=== PATIENT | female | born 1955 | race Two or more races ===

== ENCOUNTER 2019-11-25 20:04 | Inpatient (IN) | payer MEDICARE, MEDICAID ==
[~2019-11-25] VITALS: Ht 165.1 cm; Wt 69.4 kg
[2019-11-25 21:17] LABS: BASOPHILS % 0.6 % (0.0-2.0); EOSINOPHILS % 2.2 % (0.0-5.0); HEMATOCRIT. 46.3 % (36.0-48.0); HEMOGLOBIN. 15.7 g/dL (12.0-16.0); LYMPHOCYTES % 29.1 % (20.0-50.0); MEAN CORPUSCULAR HEMOGLOBIN 29.9 pg (28.0-32.0); MEAN PLATELET VOLUME 11.2 fl (7.4-10.4); MONOCYTES % 10.3 % (2.0-8.0); NEUTROPHILS % 57.8 % (40.0-76.0); PLATELET 188 x1000/uL (130-400); RED BLOOD CELL COUNT 5.26 mill/uL (4.2-5.4); RED CELL DISTRIBUTION WIDTH 13.2 % (11.6-14.6)
[2019-11-25 21:24] LABS: CHLORIDE 108 mEq/L (98-107)
[2019-11-25 21:26] LABS: PROTHROMBIN TIME 10.3 sec (9.6-11.0)
[2019-11-25 21:28] LABS: ETHANOL BLOOD < 10 mg/dL
[2019-11-25 21:31] LABS: LDL CHOLESTEROL 148 mg/dL (5-100)
[2019-11-25] MEDS ORDERED: LABETALOL 5MG/ML SYR 20 MG/4 ML SYRINGE IV ONE (21:45)
[2019-11-25] MEDS ORDERED: IPRATROPIUM/ALBUTEROL 0.5-3(2.5)MG/3ML NEB NEB PRN (22:45)
[2019-11-25] MEDS ORDERED: GUAIFENESIN 200MG/10ML SUGAR FREE UDC PO PRN (22:45)
[2019-11-25] MEDS ORDERED: ACETAMINOPHEN 325MG TABLET PO PRN ×2 (22:45)
[2019-11-25] MEDS ORDERED: ONDANSETRON HCL 4MG/2ML INJ IV PRN (22:45)
[2019-11-25] MEDS ORDERED: ZOLPIDEM TARTRATE 5MG TABLET PO PRN (22:45)
[2019-11-25] MEDS ORDERED: NITROGLYCERIN 0.4MG TABLET SL SL PRN (22:45)
[2019-11-25] MEDS ORDERED: DOCUSATE SODIUM 100MG CAPSULE PO PRN (22:45)
[2019-11-25] MEDS ORDERED: KETOROLAC 15MG/ML VIAL IV PRN (22:45)
[2019-11-25] MEDS ORDERED: MAGNESIUM/ALUMINUM HYDROXIDE/SIMETHICONE 30ML UDC PO PRN (22:45)
[2019-11-25 23:13] LABS: CLARITY URINE CLOUDY (CLEAR); COLOR URINE YELLOW (YELLOW); KETONES URINE NEGATIVE (NEGATIVE); LEUKOCYTE ESTERASE URINE 3+ (NEGATIVE); NITRITE URINE NEGATIVE (NEGATIVE); OCCULT BLOOD URINE NEGATIVE (NEGATIVE); PH URINE 7.5 (4.5-8.0); PROTEIN URINE NEGATIVE (NEGATIVE); SPECIFIC GRAVITY URINE 1.019 (1.005-1.030); UROBILINOGEN URINE 0.2 E.U./dL (0.2-1.0)
[2019-11-25] MEDS: AMLODIPINE 10MG TABLET PO SCH (23:20)
[2019-11-25] MEDS: CLONIDINE 0.1MG TABLET PO PRN (23:20)
[2019-11-25] MEDS ORDERED: IOHEXOL-350 100 ML BOTTLE ONE (23:30)
[2019-11-25 23:40] LABS: *AMPHETAMINES SCREEN URINE NEGATIVE (NEGATIVE); *BARBITURATES SCREEN URINE NEGATIVE (NEGATIVE); *BENZODIAZEPINES SCREEN URINE NEGATIVE (NEGATIVE); *COCAINE SCREEN URINE NEGATIVE (NEGATIVE); METHADONE URINE SCREEN NEGATIVE (NEGATIVE)
[2019-11-25 23:41] LABS: CANNABINOID URINE SCREEN NEGATIVE (NEGATIVE); OPIATES URINE SCREEN NEGATIVE (NEGATIVE); PHENCYCLIDINE URINE SCREEN NEGATIVE (NEGATIVE)
[2019-11-26 02:45] VITALS: BP 149/95
[2019-11-26] MEDS ORDERED: METO-411 MT (03:28)
[2019-11-26 04:00] VITALS: BP 119/76
[2019-11-26 06:08] LABS: BASOPHILS % 0.7 % (0.0-2.0); EOSINOPHILS % 1.6 % (0.0-5.0); HEMATOCRIT. 43.9 % (36.0-48.0); HEMOGLOBIN. 14.9 g/dL (12.0-16.0); LYMPHOCYTES % 27.5 % (20.0-50.0); MEAN CORPUSCULAR HEMOGLOBIN 29.6 pg (28.0-32.0); MEAN CORPUSCULAR VOLUME 87.5 fL (81.0-99.0); MONOCYTES % 7.2 % (2.0-8.0); PLATELET 175 x1000/uL (130-400); RED BLOOD CELL COUNT 5.02 mill/uL (4.2-5.4); RED CELL DISTRIBUTION WIDTH 13.1 % (11.6-14.6)
[2019-11-26 06:41] LABS: CHLORIDE 108 mEq/L (98-107)
[2019-11-26 06:52] LABS: PHOSPHORUS 2.7 mg/dL (2.5-4.9)
[2019-11-26 06:55] LABS: CREATINE KINASE 42 IU/L (26-192)
[2019-11-26 06:57] LABS: CREATINE KINASE MB FRACTION < 1.0 ng/mL (0.5-3.6)
[2019-11-26] MEDS: HYDRALAZINE HCL 50MG TABLET PO SCH ×3 (07:35→21:04)
[2019-11-26 08:00] VITALS: BP 131/86
[2019-11-26] MEDS: ASPIRIN 325MG EC TABLET PO SCH (08:20)
[2019-11-26] MEDS: AMLODIPINE 10MG TABLET PO SCH (08:20)
[2019-11-26] MEDS: ZINC SULFATE 220 MG ( 50 ) CAPSULE PO SCH (08:22)
[2019-11-26] MEDS: ASCORBIC ACID 500 MG TABLET PO SCH ×2 (08:22→20:48)
[2019-11-26] MEDS: LISINOPRIL 20MG TABLET PO SCH ×2 (08:22→20:49)
[2019-11-26] MEDS: FAMOTIDINE 20MG TABLET PO SCH ×2 (08:23→20:49)
[2019-11-26] MEDS: ENOXAPARIN 40MG/0.4ML SYR SUBCUT SCH (08:23)
[2019-11-26 12:00] VITALS: BP 117/68
[2019-11-26 15:58] LABS: CREATINE KINASE 41 IU/L (26-192); CREATINE KINASE MB FRACTION < 1.0 ng/mL (0.5-3.6)
[2019-11-26 16:00] VITALS: BP 92/50
[2019-11-26 20:00] VITALS: BP 168/92
[2019-11-26] MEDS: CLONIDINE 0.1MG TABLET PO PRN (20:49)
[2019-11-26] MEDS ORDERED: ATORVASTATIN CALCIUM 10MG TABLET PO SCH (21:00)
[2019-11-27] VITALS: BP 101/56
[2019-11-27 04:00] VITALS: BP 98/56
[2019-11-27] MEDS: HYDRALAZINE HCL 50MG TABLET PO SCH (06:00)
[2019-11-27 08:00] VITALS: BP 110/76
[2019-11-27] MEDS: ZINC SULFATE 220 MG ( 50 ) CAPSULE PO SCH (08:44)
[2019-11-27] MEDS: ASPIRIN 325MG EC TABLET PO SCH (08:44)
[2019-11-27] MEDS: ASCORBIC ACID 500 MG TABLET PO SCH (08:44)
[2019-11-27] MEDS: AMLODIPINE 10MG TABLET PO SCH (08:44)
[2019-11-27] MEDS: LISINOPRIL 20MG TABLET PO SCH (08:45)
[2019-11-27] MEDS: ENOXAPARIN 40MG/0.4ML SYR SUBCUT SCH (08:45)
[2019-11-27] MEDS ORDERED: FAMOTIDINE 10MG TABLET PO SCH (09:30)
[2019-11-27 09:55] VITALS: BP 110/76
== END 2019-11-27 14:00 | disposition home or self-care (01) | DRG 69 ==
LOC: ER 20:04 → MICUSO 21:52 → EDBEDREQ 21:58 → EDBEDREQTM 21:58 → ENRESERV 22:35 → CANRESERV 22:35 → SUPCPDRO 22:38 → ENRESERV 23:39 → CANRESERV 23:39 → EDBEDREQSVC 11-26 00:10 → 6WST 11-26 02:08
PROVIDERS: ADMIT Internal Medicine; ATTEND Internal Medicine
DX: G45.9 Transient cerebral ischemic attack, unspecified (principal); I16.1 Hypertensive emergency; K75.9 Inflammatory liver disease, unspecified; E78.00 Pure hypercholesterolemia, unspecified; I10 Essential (primary) hypertension
CPT/HCPCS: 36415; 70496; 70498; 70551; 71045; 80053; 80061; 80305; 80320; 81003; 82550; 82553; 83036; 83721; 83735; 84100; 84484; 85025; 93005; 93306; 93970; 96374; 99285; J1650; J3490; Q9967; G0480

== ENCOUNTER 2019-12-25 19:42 | Emergency (ER) | payer MEDICARE, MEDICAID ==
[~2019-12-25] VITALS: Ht 154.9 cm; Wt 68.0 kg
[2019-12-25] MEDS ORDERED: ACETAMINOPHEN 325MG TABLET PO STA (20:59)
[2019-12-25] MEDS ORDERED: IBUPROFEN 600MG TABLET PO STA (20:59)
[2019-12-25 21:35] LABS: HEMATOCRIT. 45.9 % (36.0-48.0); HEMOGLOBIN. 15.5 g/dL (12.0-16.0); MEAN CORPUSCULAR HEMOGLOBIN 29.4 pg (28.0-32.0); MEAN CORPUSCULAR VOLUME 87.3 fL (81.0-99.0); MEAN PLATELET VOLUME 10.5 fl (7.4-10.4); PLATELET 201 x1000/uL (130-400); RED BLOOD CELL COUNT 5.26 mill/uL (4.2-5.4); RED CELL DISTRIBUTION WIDTH 13.4 % (11.6-14.6)
[2019-12-25 21:36] LABS: CHLORIDE 101 mEq/L (98-107)
[2019-12-25 21:56] LABS: PLATELET ESTIMATE NORMAL
[2019-12-25] MEDS ORDERED: IOHEXOL-350 100 ML BOTTLE ONE (23:20)
[2019-12-25 23:56] LABS: CLARITY URINE CLEAR (CLEAR); COLOR URINE ORANGE (YELLOW); KETONES URINE NEGATIVE (NEGATIVE); LEUKOCYTE ESTERASE URINE 2+ (NEGATIVE); NITRITE URINE NEGATIVE (NEGATIVE); OCCULT BLOOD URINE NEGATIVE (NEGATIVE); PH URINE 6.5 (4.5-8.0); PROTEIN URINE NEGATIVE (NEGATIVE); SPECIFIC GRAVITY URINE 1.021 (1.005-1.030)
[2019-12-26] MEDS ORDERED: LEVOFLOXACIN 500MG TABLET PO ONE (00:45)
[2019-12-26 00:55] VITALS: BP 140/90
== END 2019-12-26 00:57 | disposition home or self-care (01) ==
LOC: ER 19:42
DX: K52.9 Noninfective gastroenteritis and colitis, unspecified (principal); N39.0 Urinary tract infection, site not specified; I10 Essential (primary) hypertension; Z86.19 Personal history of other infectious and parasitic diseases; Z90.710 Acquired absence of both cervix and uterus
CPT/HCPCS: 36415; 74177; 80053; 81003; 83690; 85025; 99285; Q9967